=== PATIENT | male | born 1935 | race Caucasian/White ===

== ENCOUNTER 2017-11-08 01:55 | Inpatient (IN) | payer OTHER ==
[2017-11-08 02:27] LABS: Absolute Lymphocytes (CBC) 0.7 K/uL (0.7-4.9); Absolute Monocytes 0.5 K/uL (0.1-1.3); Absolute Neutrophil 7.3 K/uL (1.8-8.0); Basophils % 0.2 % (0-1.3); Eosinophils % 0.1 % (0-4.4); Hematocrit 40.2 % (39.6-49.0); Lymphocytes % 8.1 % (15.3-44.8); MCH 33.2 pg (27.0-35.0); MCV 93.6 fL (80-100); Monocytes % 6.2 % (3.3-12.3)
[2017-11-08] MEDS ORDERED: ONDANSETRON 4 MG/2 ML VIAL ONE (02:30)
[2017-11-08 02:45] LABS: Protime INR 0.92
[2017-11-08 02:48] LABS: ALT/SGPT 17 U/L (12-78); AST/SGOT 41 U/L (15-37); Albumin 3.7 g/dL (3.4-5.0); Alkaline Phosphatase 95 U/L (45-117); BUN Blood Urea Nitrogen 9 mg/dL (7-18); Bicarbonate 28 mmol/L (21-32); Bilirubin Direct 0.3 mg/dL (0-0.2); Glucose Level 126 mg/dL (74-106); Lipase 49 U/L (73-393); Potassium 3.2 mmol/L (3.5-5.1); Protein, Total 6.8 g/dL (6.4-8.2); Sodium Level 132 mmol/L (136-145)
[2017-11-08] MEDS ORDERED: PROMETHAZINE 25 MG/ML VIAL ONE (03:10)
[2017-11-08 04:09] LABS: Blood Morphology Comment NOT SEEN (NOT SEEN); Platelet Estimate ADEQ; Urine White Blood Cell Casts OK
--- NOTE | 2017-11-08 05:13 | EDPHYS ---
Physician Documentation [facility] Name: Chan Juan Age: 82 yrs Sex: Male : 1935 Arrival Date: 11/08/2017 Time: 01:57 Bed 18 Private MD: ED Physician Austin Leong HPI: 11/08 05:06 This 82 yrs old Male presents to ER via EMS with complaints of Rectal rn Bleeding. 05:06 The patient presents to the emergency department with bleeding from the rectum/anus. rn Onset: The symptoms/episode began/occurred yesterday. Context: the patient has no known special context relating to the rectal area complaint(s). Modifying factors: The symptoms are alleviated by nothing, The symptoms are aggravated by bowel movement. Associate signs and symptoms: Pertinent positives: abdominal pain in the left lower quadrant, lower GI bleeding, bright red. The patient has not experienced similar symptoms in the past. The patient has not recently seen a physician. Reports left sided abd pain, began yesterday, constant, assoc with nausea/vomiting, and small amount of bright red rectal bleeding.. Historical: - Allergies: 02:04 No Known Allergies; tl2 - Home Meds: 02:04 dilaudid [Active]; bisoprolol fumarate oral oral [Active]; tl2 - PMHx: 02:00 Hypertension; tl2 02:04 chronic back pain; tl2 - PSHx: 02:05 Cholecystectomy; tl2 - Immunization history:: Adult Immunizations up to date. - Social history:: Smoking status: Patient uses tobacco products, smokes one-half pack cigarettes per day. - Ebola Screening: : No symptoms or risks identified at this time. - Family history:: not pertinent. - Hospitalizations: : No recent hospitalization is reported. ROS: 05:06 Constitutional: Negative for fever, chills, and weight loss, Eyes: Negative for injury, rn pain, redness, and discharge, Neck: Negative for injury, pain, and swelling, Cardiovascular: Negative for chest pain, palpitations, and edema, Respiratory: Negative for shortness of breath, cough, wheezing, and pleuritic chest pain, Abdomen/GI: Negative for diarrhea, and constipation, + rectal bleeding MS/Extremity: Negative for injury and deformity, Skin: Negative for injury, rash, and discoloration, Neuro: Negative for headache, weakness, numbness, tingling, and seizure. Exam: 05:06 Constitutional: This is a well developed, well nourished patient who is awake, alert, rn actively throwing up in emesis bag Head/Face: Normocephalic, atraumatic. Eyes: Pupils equal round and reactive to light, extra-ocular motions intact. Lids and lashes normal. Conjunctiva and sclera are non-icteric and not injected. Cornea within normal limits. Periorbital areas with no swelling, redness, or edema. Cardiovascular: Regular rate and rhythm with a normal S1 and S2. No gallops, murmurs, or rubs. Normal PMI, no JVD. No pulse deficits. Respiratory: Lungs have equal breath sounds bilaterally, clear to auscultation and percussion. No rales, rhonchi or wheezes noted. No increased work of breathing, no retractions or nasal flaring. Abdomen/GI: soft, + moderate tenderness left abdomen with guarding Skin: Warm, dry with normal turgor. Normal color with no rashes, no lesions, and no evidence of cellulitis. MS/ Extremity: Pulses equal, no cyanosis. Neurovascular intact. Full, normal range of motion. Equal circumference. Neuro: awake, alert, follows all commands Vital Signs: 02:00 BP 180 / 86; Pulse 88; Resp 18; Temp 98.8(O); Pulse Ox 100% on R/A; Weight 74.84 kg; tl2 Height 5 ft. 9 in. (175.26 cm); Pain 10/10; 03:45 BP 177 / 75; Pulse 75; Resp 19 S; Pulse Ox 98% on R/A; cc3 04:00 BP 178 / 70; Pulse 77; Resp 20 S; Pulse Ox 98% on R/A; cc3 05:30 BP 171 / 73; Pulse 78; Resp 20 S; Pulse Ox 98% on R/A; cc3 02:00 Body Mass Index 24.37 (74.84 kg, 175.26 cm) tl2 MDM: 02:06 Patient medically screened. rn 05:11 Differential diagnosis: colitis. Data reviewed: vital signs, nurses notes, lab test rn result(s), radiologic studies, CT scan, and as a result, I will admit patient. Counseling: I had a detailed discussion with the patient and/or guardian regarding: the historical points, exam findings, and any diagnostic results supporting the discharge/admit diagnosis, lab results, radiology results, the need for further work-up and treatment in the hospital. Admission orders: after a detailed discussion of the patient's condition and case, the admit orders are written by me. ED course: Pt with moderate to severe colitis, will admit to Dr. Robledo for IV abx, does not need blood transfusion.. 05:26 ED course: Message left for Dr. Robledo at 0525 after called and no answer. . rn 11/08 02:07 Order name: Basic Metabolic Panel; Complete Time: 03:46 rn 11/08 02:07 Order name: CBC with Diff; Complete Time: 05:01 rn 11/08 02:07 Order name: Creatinine for Radiology; Complete Time: 03:46 rn 11/08 02:07 Order name: Hepatic Function; Complete Time: 03:46 11/08 02:07 Order name: Lipase; Complete Time: 03:46 rn 11/08 02:07 Order name: Type And Screen; Complete Time: 03:46 rn 11/08 02:07 Order name: CT Abd/Pelvis - W/Contrast rn 11/08 02:07 Order name: PT-INR; Complete Time: 03:46 11/08 02:07 Order name: Ptt, Activated; Complete Time: 03:46 rn 11/08 04:09 Order name: CBC Smear Scan; Complete Time: 05:01 EDNE 11/08 05:51 Order name: ABO/RH no charge EDNE 11/08 02:07 Order name: IV Saline Lock; Complete Time: 02:39 rn 11/08 02:07 Order name: Labs collected and sent; Complete Time: 02:39 rn Administered Medications: 02:30 Drug: Zofran 4 mg Route: IVP; Site: right antecubital; cc3 03:00 Follow up: Response: No adverse reaction; Vomiting unchanged cc3 03:06 Drug: Promethazine 12.5 mg Route: IVP; Site: right antecubital; cc3 03:30 Follow up: Response: No adverse reaction; Vomiting decreased cc3 05:20 Drug: Rocephin - (cefTRIAXone) 1 grams Route: IVPB; Infused Over: 30 mins; Site: right cc3 antecubital; 05:35 Follow up: Response: No adverse reaction; IV Status: Completed infusion; IV Intake: [id number] 05:25 Drug: Flagyl 500 mg Volume: 100 ml; Route: IVPB; Rate: 200 ml/hr; Infused Over: 30 cc3 mins; Site: right antecubital; 05:45 Follow up: Response: No adverse reaction; IV Status: Infusion continued upon admission cc3 Disposition: 11/08/17 05:13 Hospitalization ordered by Nathan Robledo for Inpatient Admission. Preliminary diagnosis is Colitis. - Bed requested for Telemetry/MedSurg (Inpatient). - Status is Inpatient Admission. cc3 - Condition is Stable. - Problem is new. - Symptoms have improved. UTI on Admission? No Signatures: Dispatcher [employer] EDDanielle Shukla RN RN kl Nieto, Roman, MD MD rn Knox, Taylor, RN RN 2 Nela Lama cc3 Corrections: (The following items were deleted from the chart) 02:05 02:00 Allergies: No Known Allergies; tl2 tl2 02:05 02:00 Home Meds: Dilantin Oral; tl2 tl2 05:23 05:13 Hospitalization Ordered by Nathan Robledo MD for Inpatient Admission. Preliminary diagnosis is Colitis. Bed requested for Telemetry/MedSurg (Inpatient). Status is Inpatient Admission. Condition is Stable. Problem is new. Symptoms have improved. UTI on Admission? No. rn 06:00 05:23 11/08/2017 05:13 Hospitalization Ordered by Nathan Robledo MD for Inpatient cc3 Admission. Preliminary diagnosis is Colitis. Bed requested for Telemetry/MedSurg (Inpatient). Status is Inpatient Admission. Condition is Stable. Problem is new. Symptoms have improved. UTI on Admission? No. kl
--- NOTE | 2017-11-08 05:13 | ER ---
Nurse's Notes [facility] Name: Chan Juan Age: 82 yrs Sex: Male : 1935 Arrival Date: 11/08/2017 Time: 01:57 Bed 18 Private MD: Diagnosis: Colitis Presentation: 11/08 01:58 Presenting complaint: EMS states: Pt had been constipated and stated he started passing tl2 blood with his bowel movements. Patient states he is passing bright red blood. Reports LLQ pain and nausea. Transition of care: patient was not received from another setting of care. Onset of symptoms was November 07, 2017 at 17:00. Risk Assessment: Do you want to hurt yourself or someone else? Patient reports no desire to harm self or others. Initial Sepsis Screen: Does the patient meet any 2 criteria? No. Patient's initial sepsis screen is negative. Does the patient have a suspected source of infection? No. Patient's initial sepsis screen is negative. Care prior to arrival: None. 01:58 Method Of Arrival: EMS: [facility] tl2 01:58 Acuity: LUANA 3 tl2 Triage Assessment: 02:00 General: Appears in no apparent distress. uncomfortable, Behavior is calm, cooperative, tl2 appropriate for age. Pain: Complains of pain in left lower quadrant. Neuro: Level of Consciousness is awake, alert, obeys commands, Oriented to person, place, time, situation. Respiratory: Airway is patent Respiratory effort is even, unlabored, Respiratory pattern is regular, symmetrical. GI: Abdomen is tender to palpation in left lower quadrant Reports rectal bleeding, nausea, vomiting. : No signs and/or symptoms were reported regarding the genitourinary system. Derm: Skin is pink, warm \T\ dry. Historical: - Allergies: 02:04 No Known Allergies; tl2 - Home Meds: 02:04 dilaudid [Active]; bisoprolol fumarate oral oral [Active]; tl2 - PMHx: 02:00 Hypertension; tl2 02:04 chronic back pain; tl2 - PSHx: 02:05 Cholecystectomy; tl2 - Immunization history:: Adult Immunizations up to date. - Social history:: Smoking status: Patient uses tobacco products, smokes one-half pack cigarettes per day. - Ebola Screening: : No symptoms or risks identified at this time. - Family history:: not pertinent. - Hospitalizations: : No recent hospitalization is reported. Screenin:01 Abuse screen: Denies threats or abuse. Nutritional screening: No deficits noted. tl2 Tuberculosis screening: No symptoms or risk factors identified. Fall Risk Gait- Weak (10 pts.). Assessment: 02:00 General: see triage note. cc3 03:30 Reassessment: Patient appears in no apparent distress at this time. Patient and/or cc3 family updated on plan of care and expected duration. Pain level reassessed. Patient is alert, oriented x 3, equal unlabored respirations, skin warm/dry/pink. 04:10 Reassessment: Patient appears in no apparent distress at this time. Patient and/or cc3 family updated on plan of care and expected duration. Pain level reassessed. Patient is alert, oriented x 3, equal unlabored respirations, skin warm/dry/pink. Patient taken to CT scan department for CT scan abdomen/pelvis procedure. 04:35 Reassessment: Patient appears in no apparent distress at this time. Patient and/or cc3 family updated on plan of care and expected duration. Pain level reassessed. Patient is alert, oriented x 3, equal unlabored respirations, skin warm/dry/pink. Patient came back from CT scan department; CT scan abdomen/pelvis done, waiting for result. 05:13 Reassessment: Patient appears in no apparent distress at this time. Patient and/or cc3 family updated on plan of care and expected duration. Pain level reassessed. Patient is alert, oriented x 3, equal unlabored respirations, skin warm/dry/pink. Patient is ordered for admission as a case of colitis. 05:37 Reassessment: Room assigned to [facility], called extension [phone] and the one who answered said cc3 that the nurse who will receive the patient will call me back. 05:40 Reassessment: Patient appears in no apparent distress at this time. Patient and/or cc3 family updated on plan of care and expected duration. Pain level reassessed. Patient is alert, oriented x 3, equal unlabored respirations, skin warm/dry/pink. Report handed over to auto hauler Hermelinda Mccracken for continuity of care. 05:50 Reassessment: Patient left ER vitally stable by stretcher assisted by the occupational therapy technician. cc3 Vital Signs: 02:00 BP 180 / 86; Pulse 88; Resp 18; Temp 98.8(O); Pulse Ox 100% on R/A; Weight 74.84 kg; tl2 Height 5 ft. 9 in. (175.26 cm); Pain 10/10; 03:45 BP 177 / 75; Pulse 75; Resp 19 S; Pulse Ox 98% on R/A; cc3 04:00 BP 178 / 70; Pulse 77; Resp 20 S; Pulse Ox 98% on R/A; cc3 05:30 BP 171 / 73; Pulse 78; Resp 20 S; Pulse Ox 98% on R/A; cc3 02:00 Body Mass Index 24.37 (74.84 kg, 175.26 cm) tl2 ED Course: 01:57 Patient arrived in ED. tl2 01:59 Triage completed. tl2 02:00 Arm band placed on right wrist. tl2 02:01 Patient has correct armband on for positive identification. Bed in low position. Call tl2 light in reach. Side rails up X2. 02:06 Austin Leong MD is Attending Physician. rn 02:30 Inserted saline lock: 20 gauge in right antecubital area, using aseptic technique. cc3 Blood collected. 04:25 CT Abd/Pelvis - W/Contrast In Process Unspecified. EDMS 05:13 Nathan Robledo MD is Hospitalizing Provider. rn 05:16 Anthony Maier RN is Primary Nurse. bp 05:50 No provider procedures requiring assistance completed. Patient admitted, IV remains in cc3 place. Administered Medications: 02:30 Drug: Zofran 4 mg Route: IVP; Site: right antecubital; cc3 03:00 Follow up: Response: No adverse reaction; Vomiting unchanged cc3 03:06 Drug: Promethazine 12.5 mg Route: IVP; Site: right antecubital; cc3 03:30 Follow up: Response: No adverse reaction; Vomiting decreased cc3 05:20 Drug: Rocephin - (cefTRIAXone) 1 grams Route: IVPB; Infused Over: 30 mins; Site: right cc3 antecubital; 05:35 Follow up: Response: No adverse reaction; IV Status: Completed infusion; IV Intake: [id number] 05:25 Drug: Flagyl 500 mg Volume: 100 ml; Route: IVPB; Rate: 200 ml/hr; Infused Over: 30 cc3 mins; Site: right antecubital; 05:45 Follow up: Response: No adverse reaction; IV Status: Infusion continued upon admission cc3 Intake: 05:35 IV: 50ml; Total: 50ml. cc3 Outcome: 05:13 Decision to Hospitalize by Provider. rn 05:50 Admitted to Tele accompanied by tech, via stretcher, room 403, with chart, Report cc3 called to KATELIN Mccracken 05:50 Condition: stable 05:50 Instructed on the need for admit. 06:00 Patient left the ED. cc3 Signatures: Dispatcher [employer] EDMS Austin Leong MD MD rn Knox, Taylor, RN RN tl2 Anthony Maier RN RN Nela Cardona cc3 Corrections: (The following items were deleted from the chart) 02:05 02:00 Allergies: No Known Allergies; tl2 tl2 02:05 02:00 Home Meds: Dilantin Oral; tl2 tl2 05:40 05:13 Reassessment: Patient appears in no apparent distress at this time. Patient cc3 and/or family updated on plan of care and expected duration. Pain level reassessed. Patient is alert, oriented x 3, equal unlabored respirations, skin warm/dry/pink. Patient is ordered for admission as a case of colitis. Room assigned to 403, called extension [phone] and the one who answered said that the nurse who will receive the patient will call me back. cc3
[2017-11-08] MEDS ORDERED: CEFTRIAXONE 1000 MG/VIAL ONE (05:26)
[2017-11-08] MEDS ORDERED: METRONIDAZOLE 500mg IVPB 500 MG/100 ML BAG IV ONE (05:27)
[2017-11-08] MEDS ORDERED: NA CHLORIDE 0.9% 50 ML IV ONE (05:27)
[2017-11-08] MEDS ORDERED: ONDANSETRON 4 MG/2 ML VIAL IV PRN (06:19)
[2017-11-08] MEDS ORDERED: MORPHINE 4 MG/ML SYR IV PRN (06:19)
[2017-11-08] MEDS: D5 0.45 NS 1,000 ML IV SCH ×3 (06:36→22:21)
[2017-11-08] MEDS ORDERED: HYDROCODONE/APAP 7.5/325 MG TAB PO PRN (09:35)
--- NOTE | 2017-11-08 11:34 | RAD REPORT ---
EXAM DESCRIPTION: CT - Abdomen Pelvis W Contrast - 11/08/2017 7:12 am CLINICAL HISTORY: Abdominal pain, rectal bleeding. A preliminary report was provided at the time of the study and reviewed prior to final report. The final report was delayed due to PACs and/or Fluency technical problems that existed at the time of the study or during expected/usual dictation time period. COMPARISON: CT study September 2008 TECHNIQUE: Biphasic, helical CT imaging of the abdomen and pelvis was performed following 100 ml non -ionic IV contrast. Oral contrast was given. All CT scans are performed using dose optimization technique as appropriate and may include automated exposure control or mA/KV adjustment according to patient size. FINDINGS: No mass or consolidation. Minimal interstitial lung disease is evident. Patient has substa ntial bilateral gynecomastia that is only partially imaged. The prior study did not image this region to allow comparison. The liver, spleen, and pancreas show no suspicious findings. Cholecystectomy clips are present. No bi liary tree dilatation. Symmetric renal function is seen with no hydronephrosis or suspicious renal mass. No pyelonephritis o r acute renal parenchymal process. [place] of the urinary bladder are mildly prominent probably still n ormal range. Very small prostate gland is present. Patient may be status post prostatectomy. No urina ry bladder wall mass. No gastric dilatation or acute stomach process. Stomach is small and may be partially resected. No ac ely shoshone small bowel finding. Oral contrast has reached the hepatic flexure. There is wall thickening and edema at the sigmoid. Hepatic flexure and right side transverse colon are relatively spared. There is circumferential wall thickening and edema in the left side of the colon that becomes more pronounced in the distal rectum and sigmoid. There is congestion and edema in the adjacent fat. A focal discret e mass is not identifiable. No free air or pneumatosis. A small amount of free intraperitoneal fluid is present. No hernia, mass or bulky lymphadenopathy. No omental thickening. No adrenal abnormality. Disc and bony degenerative changes are present. No pathologic bone process. Very dense arterial tree calcifications are present. IMPRESSION: Advanced colitis findings of the sigmoid colon and rectum. Significant but less prominen t colitis findings of the left-side transverse colon, descending colon and cecum. Small quantity of free fluid. No free air or surgically emergent finding. Infectious/ inflammatory etiology is favored. Ischemic etiology is less likely. Patient has significant bilateral gynecomastia findings that are only partially imaged on this study. Correlation can be made with physical exam findings and follow-up as warranted.
[2017-11-08] MEDS ORDERED: cloNIDine HCl 0.1 MG TAB PO ONE (12:02)
[2017-11-08] MEDS ORDERED: TEMAZEPAM 15 MG CAP PO PRN (12:40)
--- NOTE | 2017-11-08 12:47 | P.HP ---
Certification for Inpatient Patient admitted to: Observation With expected LOS: <2 Midnights Patient will require the following post-hospital care: None Practitioner: I am a practitioner with admitting privileges, knowledge of patient current condition, hospital course, and medical plan of care. Services: Services provided to patient in accordance with Admission requirements found in Title 42 Section 412.3 of the Code of Federal Regulations Patient History Date of Service: 11/08/17 Primary Care Provider: Meena Reason for admission: Sigmoid colitis History of Present Illness: Patient is an office patient of [employer]. He has a history of htn and abnormal kidney function. Also chronic pain which is treated by Dr. Pedraza. He had constipation for the past 2 days and abdmonial pain. He came to the ER. Was found to have some blood in the stool and colitis on CT. No signs of obstruction. The patient is not a very good historian. He has abdominal pain and constipation. No vomiting. States he takes Dilaudid 4mg [id number] per Dr Pedraza for his chronic pain Allergies No Known Allergies Allergy (Unverified 11/08/17 05:31) Home Medications: Bisoprolol Fumarate [Zebeta*] 11/08/17 Hydromorphone [Dilaudid*] 1 tab PO TIDP PRN 11/08/17 - Past Medical/Surgical History Has patient received pneumonia vaccine in the past: No Diabetic: No -: CHronic Back pain -: HTN -: Cholecystectomy - Social History Smoking Status: Never smoker Alcohol use: Yes CD- Drugs: No Caffeine use: No Place of Residence: Home Review of Systems 10-point ROS is otherwise unremarkable General: Weakness Gastrointestinal: Abdominal Pain, Constipation Physical Examination - Vital Signs Temperature: 98.6 F Blood Pressure: 167/76 Pulse: 77 Respirations: 16 Pulse Ox (%): 98 - Physical Exam General: Alert, In no apparent distress HEENT: Atraumatic, PERRLA, Mucous membr. moist/pink, EOMI, Sclerae nonicteric Neck: Supple, 2+ carotid pulse no bruit, No LAD, Without JVD or thyroid abnormality Respiratory: Clear to auscultation bilaterally, Normal air movement Cardiovascular: Regular rate/rhythm, Normal S1 S2 Gastrointestinal: Normal bowel sounds, W/out hepatosplenomegaly, Tenderness Musculoskeletal: No tenderness Integumentary: No rashes Neurological: Normal gait, Normal speech, Normal strength at 5/5 x4 extr, Normal tone, Normal affect Lymphatics: No axilla or inguinal lymphadenopathy - Studies Laboratory Data (last 24 hrs) 11/08/17 02:05: PT 10.8, INR 0.92, APTT 30.6 11/08/17 02:05: Creatinine 0.70 11/08/17 02:05: WBC 8.6, Hgb 14.3, Hct 40.2, Plt Count 178 11/08/17 02:05: Sodium 132 L, Potassium 3.2 L, BUN 9, Creatinine 0.70, Glucose 126 H, Total Bilirubin 1.0, AST 41 H, ALT 17, Alkaline Phosphatase 95, Lipase 49 L Assessment and Plan - Problems (Diagnosis) (1) Colitis Current Visit: Yes Status: Acute Plan: Will continue bowel rest and fluids. He has no obstruction. he has been on a steady dosage of dilaudid for years. So most likely not opiod constipation. Will try a clear liquid diet and advance as tolerated. (2) HTN (hypertension) Current Visit: Yes Status: Acute Plan: He is on amlodipine, cozaar and ziac. Will restart the amlodipine and cozaar. Will see if he is better controlled and then consider the beta babak Qualifiers: Hypertension type: essential hypertension Qualified Code(s): I10 - Essential (primary) hypertension (3) Chronic pain syndrome Current Visit: Yes Status: Acute Plan: Have called Dr. Pedraza and verified his dosage. is on 4mg Q8hrs not Q4hrs. Will start him on that and stop the other pain meds. Discharge Plan: Home Plan to discharge in: 48 Hours - Advance Directives Does patient have a Living Will: Yes Does patient have a Durable POA for Healthcare: No - Code Status/Comfort Care Code Status Assessed: No Code Status: Full Code Physician Review: Patient Assessed, Agree with Above Assessment and Plan Critical Care: No Time Spent Managing Pts Care (In Minutes): 55
[2017-11-08] MEDS: METRONIDAZOLE 500mg IVPB 500 MG/100 ML BAG IV SCH ×2 (14:18→17:00)
[2017-11-08] MEDS: HYDROMORPHONE ORAL 4 MG TAB PO PRN ×2 (14:19→22:15)
[2017-11-08 16:26] LABS: Hematocrit 39.1 % (39.6-49.0)
[2017-11-08] MEDS: CEFTRIAXONE/SWI 1gm 1 GM/10 ML SYR IV SCH (17:31)
[2017-11-08] MEDS: AMLODIPINE 10 MG TAB PO SCH (17:32)
[2017-11-08] MEDS: LOSARTAN POTASSIUM 50 MG TABLET PO SCH (17:33)
[2017-11-08] MEDS ORDERED: CEFTRIAXONE 1 GM/NS 50 ML 1 GM/50 ML BAG IV SCH (18:00)
[2017-11-09] MEDS: METRONIDAZOLE 500mg IVPB 500 MG/100 ML BAG IV SCH ×3 (00:44→16:03)
[2017-11-09 03:38] LABS: Absolute Lymphocytes (CBC) 1.3 K/uL (0.7-4.9); Absolute Monocytes 0.7 K/uL (0.1-1.3); Absolute Neutrophil 6.7 K/uL (1.8-8.0); Basophils % 0.3 % (0-1.3); Eosinophils % 0.1 % (0-4.4); Hematocrit 35.3 % (39.6-49.0); Lymphocytes % 15.3 % (15.3-44.8); MCH 33.3 pg (27.0-35.0); MCV 94.3 fL (80-100); MPV 7.4 fL (7.6-11.3); Monocytes % 7.5 % (3.3-12.3); RBC Red Blood Cell Count 3.74 M/uL (4.33-5.43)
[2017-11-09 04:18] LABS: ALT/SGPT 10 U/L (12-78); AST/SGOT 20 U/L (15-37); Albumin 2.6 g/dL (3.4-5.0); Alkaline Phosphatase 68 U/L (45-117); BUN Blood Urea Nitrogen 4 mg/dL (7-18); Bicarbonate 27 mmol/L (21-32); Bilirubin Direct 0.4 mg/dL (0-0.2); Glucose Level 140 mg/dL (74-106); Lipase 38 U/L (73-393); Protein, Total 5.6 g/dL (6.4-8.2); Sodium Level 134 mmol/L (136-145)
[2017-11-09 04:21] LABS: Potassium 2.9 mmol/L (3.5-5.1)
[2017-11-09] MEDS: HYDROMORPHONE ORAL 4 MG TAB PO PRN ×3 (06:49→21:35)
[2017-11-09] MEDS: POTASSIUM CL SA 10 MEQ TAB PO SCH ×2 (07:40→16:04)
[2017-11-09] MEDS: D5 0.45 NS 1,000 ML IV SCH ×3 (07:42→21:25)
--- NOTE | 2017-11-09 09:04 | P.PN ---
Subjective Date of Service: 11/09/17 Primary Care Provider: Meena Chief Complaint: Sigmoid colitis Subjective: New changes (patient had 3 bowel movement. His first two had blood. Last BM was not bloody) Review of Systems 10-point ROS is otherwise unremarkable Physical Examination - Vital Signs Temperature: 99.8 F Blood Pressure: 142/60 Pulse: 84 Respirations: 18 Pulse Ox (%): 95 - Physical Exam General: Alert, In no apparent distress HEENT: Atraumatic, PERRLA, EOMI Neck: Supple, JVD not distended Respiratory: Clear to auscultation bilaterally, Normal air movement Cardiovascular: Regular rate/rhythm, Normal S1 S2 Gastrointestinal: Normal bowel sounds, No tenderness Musculoskeletal: No tenderness Integumentary: No rashes Neurological: Normal speech, Normal tone, Normal affect Lymphatics: No axilla or inguinal lymphadenopathy Assessment & Plan - Problems (Diagnosis) (1) Colitis Current Visit: Yes Status: Acute Plan: Will continue bowel rest and fluids. He has no obstruction. he has been on a steady dosage of dilaudid for years. So most likely not opiod constipation. Will try a clear liquid diet and advance as tolerated. (2) HTN (hypertension) Current Visit: Yes Status: Acute Plan: He is on amlodipine, cozaar and ziac. Will restart the amlodipine and cozaar. Will see if he is better controlled and then consider the beta babak Qualifiers: Hypertension type: essential hypertension Qualified Code(s): I10 - Essential (primary) hypertension (3) Chronic pain syndrome Current Visit: Yes Status: Acute Plan: Have called Dr. Pedraza and verified his dosage. is on 4mg Q8hrs not Q4hrs. Will start him on that and stop the other pain meds. Discharge Plan: Home Plan to discharge in: 48 Hours - Code Status/Comfort Care Code Status Assessed: No Code Status: Full Code Physician Review: Patient Assessed, Agree with Above Assessment and Plan Critical Care: No Time Spent Managing Pts Care (In Minutes): 25
[2017-11-09 10:05] LABS: Hematocrit 34.4 % (39.6-49.0)
[2017-11-09] MEDS: CEFTRIAXONE/SWI 1gm 1 GM/10 ML SYR IV SCH ×2 (10:51→21:25)
[2017-11-09] MEDS: LOSARTAN POTASSIUM 50 MG TABLET PO SCH (10:51)
[2017-11-09] MEDS: AMLODIPINE 10 MG TAB PO SCH (10:52)
--- OUTSIDE RECORDS SUMMARY | 2017-11-09 12:07 | XMS REPORT ---
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 Problem Essential (primary) hypertension I10 Active Problem Overflow incontinence of urine N39.490 Active Assessment Essential (primary) hypertension I10 Active Assessment Overflow incontinence of urine N39.490 Active Problem Irritable bowel syndrome with K58.0 Active diarrhea Medications Medication Code Code Instructions Start End Status Dosage System Date Date Tolterodine [facility] 66031662819 1 MG Orally Sep 22, Mar 21, Active 1 tablet Tartrate Twice a day 2017 2018 Temazepam [facility] 79204463096 15 MG Orally Active 1 capsule Once a day at bedtime as needed Neurontin [facility] 99304730782 100 MG Orally Active 1 capsule Three times a day Cozaar [facility] 88230708984 100 MG Orally Active 1 tablet Once a day Aspirin ND 37022963605 81 MG Orally Active 1 tablet Once a day Fish Oil [facility] 41667338389 1000 MG Orally Active 1 capsule Once a day Amlodipine [facility] 15597257714 10 MG Orally Active 1 tablet Besylate Once a day Norvasc [facility] 91150750784 10 Active 1 EACH ONCE A DAY Ziac [facility] 72435810962 5-6.25 MG Orally Active 1 tablet Once a day Calcium [facility] 75136098603 600 MG Orally Active 1 tablet Twice a day with meals Results No Known Results Summary Purpose eClinicalWorks Submission
--- OUTSIDE RECORDS SUMMARY | 2017-11-09 12:07 | XMS REPORT ---
:1935 Author Organization eClinicalWorks Care Team Providers Name Role Phone Nathan Robledo Provider Role Unavailable Allergies, Adverse Reactions, Alerts Substance Reaction Event Type N.K.D.A. 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 Assessment Essential (primary) hypertension I10 Active Assessment Irritable bowel syndrome with K58.0 Active diarrhea Medications Medication Code Code Instructions Start End Status Dosage System Date Date Calcium [facility] 78578465224 600 MG Orally Active 1 tablet Twice a day with meals Cozaar [facility] 76755694332 100 MG Orally Active 1 tablet Once a day Fish Oil [facility] 56168094099 1000 MG Orally Active 1 capsule Once a day Aspirin [facility] 18349748356 81 MG Orally Active 1 tablet Once a day Temazepam [facility] 51162952162 15 MG Orally Active 1 capsule Once a day at bedtime as needed Neurontin [facility] 35471980534 100 MG Orally Active 1 capsule Three times a day Amlodipine [facility] 28598485794 10 MG Orally Active 1 tablet Besylate Once a day Ziac [facility] 43374130154 5-6.25 MG Orally Active 1 tablet Once a day Results No Known Results Summary Purpose eClinicalWorks Submission
--- NOTE | 2017-11-09 13:18 | CON ---
Date of Consultation: 11/09/2017 Brief History Of Present Illness: The patient is an 82-year-old male with a history of chronic pain, who has been seen by Dr. Contreras and is on chronic narcotic use including Dilaudid for chronic back pain, who presented to the hospital with a roughly 1 week worth of constipation. He states that on Thursday or Thursday, he had a large firm very difficult to pass bowel movement at which, some bright r ed blood was evident on this. He has not had this before with respect to the bleeding. He is unsure of the amount of blood and has not had episodes prior to this or following this and since his admiss ion in the hospital, he has had persistent diarrhea. He had some abdominal pain associated with his constipation leading up to last week. He cannot recall his bowel function timing coming into the t week, as well he is somewhat of a poor historian. Past Medical History: Significant for ulcers, chronic pain, chronic back pain, I should say hyperten sarah. Past Surgical History: He has had a cholecystectomy, partial gastrectomy uncertain of the specific t ype, but it sounds like either a Billroth I or Billroth II. Allergies: NO KNOWN DRUG ALLERGIES. Medications: At home include Zebeta and Dilaudid. Social History: Denies smoking. He uses alcohol recreationally. Denies recreational drug use, but he has a chronic pain. The patient do take Dilaudid as above. Family History: Noncontributory. Review of Systems: 10-point review of systems other than HPI, denies. Physical Examination: Vital Signs: At the time of examination his BMI is 18.9, blood pressure 142/60, heart rate is 84, re spiratory rate 18, temperature 99.8. General: He is awake, alert, oriented. Psychiatric: He is appropriate. Conversive. HEENT: Normocephalic. His sclerae are anicteric. His mucous membranes are moist. His oropharynx i s clear. Neck: Supple. No JVD. Chest: Normal expansion and excursion. Cardiovascular: Regular rate and rhythm. Pulmonary: Clear to auscultation bilaterally. Abdomen: Soft with mild global tenderness to palpation. He is more tender in the distribution of th e colon in an inverted U type orientation and the left lower quadrant is slightly more tender than th e remaining abdominal examination. However, there are no peritoneal signs. No rebound. No guarding . No focal peritonitis. SKIN: His skin is warm and dry. Laboratory Data: Reveals a white blood count 8.7, hemoglobin is 12.4, hematocrit 35.9, platelet coun t is 117. His neutrophils are 76%. Sodium 134, potassium 2.9, chloride 101, carbon dioxide 27, BUN 4, creatinine 0.5, glucose 140, calcium 7.7, total bilirubin 1.0, AST 20, ALT 10, alkaline phosphatas e is 68. His lipase was 38. He had a CT scan performed of the abdomen and pelvis on 11/08, which wa s officially read as advanced colitis findings in the sigmoid colon and rectum significant for less p rominent colitis findings of the left-sided transverse colon, descending colon and cecum, small quant ity of free fluid, no free air or surgically emergent finding. Infectious/inflammatory etiology is f avored, ischemic etiology is less likely. The patient has significant bilateral gynecomastia but onl y partially imaged. Assessment And Plan: This is an 82-year-old male who comes in with signs and symptoms of colitis lik pranay due to chronic constipation secondary to narcotic use. 1.IV fluid hydration. 2.Start clear liquid diet as he currently has diarrhea. I recommend Metamucil for assistance of reg ulatory function of bulk forming of the stool. 3.Serial abdominal exams. 4.Continue medical management and electrolyte replacement. 5.I have explained that the patient should be on a stool softening regimen with Metamucil as an outp atient and described this in detail with the patient. 6.With respect to the GI bleed, the patient states he has had a colonoscopy 2-3 years ago, which had no significant findings. However, I have recommended that he follow up with his GI doctor who perfo rmed a colonoscopy to obtain these records and I will request records regarding this as well, but I d o not find that the patient has an acute gastrointestinal bleed of clinical significance at this time . However, if the records are unable to be obtained, I do recommend bowel prep and colonoscopy as an outpatient. Thank you for this interesting consult. JORGE A/MYRNA Voice ID: [id number] Report ID: [id number]
[2017-11-09 21:12] LABS: Hematocrit 33.1 % (39.6-49.0)
[2017-11-09] MEDS: PSYLLIUM 1 PKT PO SCH (21:25)
[2017-11-10] MEDS: METRONIDAZOLE 500mg IVPB 500 MG/100 ML BAG IV SCH ×2 (01:35→09:32)
[2017-11-10 04:16] LABS: Hematocrit 31.8 % (39.6-49.0)
[2017-11-10] MEDS: HYDROMORPHONE ORAL 4 MG TAB PO PRN (05:23)
[2017-11-10] MEDS: D5 0.45 NS 1,000 ML IV SCH ×2 (06:19→09:43)
--- NOTE | 2017-11-10 08:31 | P.PN ---
Subjective Date of Service: 11/10/17 Primary Care Provider: Meena Chief Complaint: Sigmoid colitis Subjective: Improving (tolerating diet, normal bowel function, no blood in stool , pain resolved) Physical Examination - Vital Signs Temperature: 98.3 F Blood Pressure: 150/65 Pulse: 78 Respirations: 20 Pulse Ox (%): 95 - Physical Exam General: Alert, In no apparent distress, Cooperative HEENT: Mucous membr. moist/pink Respiratory: Clear to auscultation bilaterally, Normal air movement Gastrointestinal: Soft and benign, No ascites, No tenderness, No masses, No rebound, No guarding Assessment And Plan - Current Problems (Diagnosis) (1) Colitis Onset Date: 11/09/17 Current Visit: Yes Status: Acute Plan: - follow up in 1 week to discuss colonoscopy - sitz baths - hemorrhoid hygene - metamucil as discussed Physician Review: Patient Assessed, Agree with Above Assessment and Plan
[2017-11-10] MEDS ORDERED: MAGNESIUM OXIDE 400 MG TAB PO SCH (09:00)
[2017-11-10] MEDS: LOSARTAN POTASSIUM 50 MG TABLET PO SCH (09:33)
[2017-11-10] MEDS: CEFTRIAXONE/SWI 1gm 1 GM/10 ML SYR IV SCH (09:33)
[2017-11-10] MEDS: PSYLLIUM 1 PKT PO SCH (09:34)
[2017-11-10] MEDS: AMLODIPINE 10 MG TAB PO SCH (09:34)
--- NOTE | 2017-11-10 10:15 | P.DS ---
Admission Date: 11/08/17 Discharge Date: 11/10/17 Primary Care Provider: Meena Disposition: ROUTINE DISCHARGE Discharge Condition: GOOD Reason for Admission: Sigmoid colitis - Problems (1) Colitis Onset Date: 11/09/17 Current Visit: Yes Status: Acute (2) HTN (hypertension) Onset Date: 11/09/17 Current Visit: Yes Status: Acute Qualifiers: Hypertension type: essential hypertension Qualified Code(s): I10 - Essential (primary) hypertension (3) Chronic pain syndrome Onset Date: 11/09/17 Current Visit: Yes Status: Acute Brief History of Present Illness: Patient is an office patient of [employer]. He has a history of htn and abnormal kidney function. Also chronic pain which is treated by Dr. Pedraza. He had constipation for the past 2 days and abdmonial pain. He came to the ER. Was found to have some blood in the stool and colitis on CT. No signs of obstruction. The patient is not a very good historian. He has abdominal pain and constipation. No vomiting. States he takes Dilaudid 4mg [id number] per Dr Pedraza for his chronic pain Hospital Course: Patient was admitted for colitis. Guiac positive. Was seen in house by Dr. Byrd. He did not have a significant drop in his HB. He is currently stable. No blood in the stools. tolerating PO intake. Will discharge him home and have him follow up with Dr. Byrd as an outpatient. Vital Signs/Physical Exam: Temp Pulse Resp BP Pulse Ox 98.3 F 68 20 166/68 H 95 11/10/17 08:31 11/10/17 09:34 11/10/17 08:31 11/10/17 09:34 11/10/17 08:31 General: Alert, In no apparent distress HEENT: Atraumatic, PERRLA, EOMI Neck: Supple, JVD not distended Respiratory: Clear to auscultation bilaterally, Normal air movement Cardiovascular: Regular rate/rhythm, Normal S1 S2 Gastrointestinal: Normal bowel sounds, No tenderness Musculoskeletal: No tenderness Integumentary: No rashes Neurological: Normal speech, Normal tone, Normal affect Lymphatics: No axilla or inguinal lymphadenopathy Laboratory Data at Discharge: WBC 8.7 K/uL (4.3-10.9) 11/09/17 03:23 Hgb 11.0 g/dL (13.6-17.9) L 11/10/17 03:30 Hct 31.8 % (39.6-49.0) L 11/10/17 03:30 Plt Count 117 K/uL (152-406) L D 11/09/17 03:23 PT 10.8 SECONDS (9.5-12.5) 11/08/17 02:05 INR 0.92 11/08/17 02:05 APTT 30.6 SECONDS (24.3-36.9) 11/08/17 02:05 Sodium 134 mmol/L (136-145) L 11/09/17 03:23 Potassium 2.9 mmol/L (3.5-5.1) L* 11/09/17 03:23 BUN 4 mg/dL (7-18) L 11/09/17 03:23 Creatinine 0.50 mg/dL (0.55-1.3) L 11/09/17 03:23 Glucose 140 mg/dL (74-106) H 11/09/17 03:23 Magnesium 1.5 mg/dL (1.8-2.4) L 11/10/17 03:30 Total Bilirubin 1.0 mg/dL (0.2-1.0) 11/09/17 03:23 AST 20 U/L (15-37) 11/09/17 03:23 ALT 10 U/L (12-78) L 11/09/17 03:23 Alkaline Phosphatase 68 U/L (45-117) 11/09/17 03:23 Lipase 38 U/L (73-393) L 11/09/17 03:23 Home Medications: Bisoprolol Fumarate [Zebeta*] 11/08/17 Hydromorphone [Dilaudid*] 1 tab PO TIDP PRN 11/08/17 Magnesium Oxide [Mag 0X*] 400 mg PO DAILY 10 Days #10 tab 11/10/17 Potassium Chloride 20 meq PO DAILY 10 Days #10 packet 11/10/17 Psyllium [Metamucil (Hydrocil)*] 1 pkt PO BID 30 Days #60 packet 11/10/17 New Medications: Magnesium Oxide [Mag 0X*] 400 mg PO DAILY 10 Days #10 tab Potassium Chloride 20 meq PO DAILY 10 Days #10 packet Psyllium [Metamucil (Hydrocil)*] 1 pkt PO BID 30 Days #60 packet Diet: Regular Activity: Ad tony Followup: Kalin Byrd MD [ACTIVE - CAN ADMIT] - 1-2 Weeks Time spent managing pt's care (in minutes): 40
[2017-11-10 10:29] LABS: Hematocrit 35.7 % (39.6-49.0)
== END 2017-11-10 11:36 | disposition home or self-care (01) | DRG 392 ==
LOC: ER 01:55 → ERHOLD 05:27 → 4TH 05:36
PROVIDERS: ADMIT Internal Medicine; ATTEND Internal Medicine
DX: K52.9 Noninfective gastroenteritis and colitis, unspecified (principal); I10 Essential (primary) hypertension; G89.4 Chronic pain syndrome; N62 Hypertrophy of breast
CPT/HCPCS: 36415; 74177; 80048; 80076; 83690; 83735; 85014; 85018; 85025; 85610; 85730; 86850; 86900; 86901; 87177; 87209; 87493; 96365; 96375; 99285; J0696; J2405; J2550; Q9967

== ENCOUNTER 2019-04-23 14:11 | Emergency (ER) | payer OTHER ==
--- OUTSIDE RECORDS SUMMARY | 2019-04-23 14:14 | XMS REPORT ---
:1935 Author Organization eClinicalWorks Care Team Providers Name Role Phone Tammie Madrigal Provider Role Unavailable Allergies, Adverse Reactions, Alerts Substance Reaction Event Type N.K.D.A. Info Not Available Non Drug Allergy Problems Problem Type Condition Code Onset Dates Condition Status Assessment Senile cataract of left eye, H25.9 Active unspecified age-related cataract type Assessment Pre-op exam Z01.818 Active Assessment Chronic pain syndrome G89.4 Active Assessment Essential (primary) hypertension I10 Active Problem Chronic pain syndrome G89.4 Active Problem Senile cataract of left eye, H25.9 Active unspecified age-related cataract type Problem Pre-op exam Z01.818 Active Problem Irritable bowel syndrome with K58.0 Active diarrhea Problem Essential (primary) hypertension I10 Active Problem Overflow incontinence of urine N39.490 Active Problem 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 Medications Medication Code Code Instructions Start End Status Dosage System Date Date Temazepam ND 39533681446 15 MG Orally Active 1 capsule Once a day at bedtime as needed Bisoprolol-Hydroc ND 62285432589 5-6.25 MG Oral Active 1 tablet hlorothiazide Once a day Calcium ND 40150410290 600 MG Orally Active 1 tablet Twice a day with meals Methocarbamol ND 57508746108 500 MG Oral Active TK 1 T PO BID Hydromorphone HCl ND 24362113914 4 MG Oral Active (Schedule II Drug) TK 1 T PO TID Aspirin ND 90734720325 81 MG Orally Active 1 tablet Once a day Lisinopril ND 16058863631 20 MG Orally Oct 12, Active 1 tablet Once a day 2018 Fish Oil ND 99191566003 1000 MG Orally Active 1 capsule Once a day Neurontin ND 00290720185 100 MG Orally Active 1 capsule Three times a day Results No Known Results Summary Purpose eClinicalWorks Submission
--- OUTSIDE RECORDS SUMMARY | 2019-04-23 14:14 | XMS REPORT | Summary of Care ---
:1935 Author Organization [facility] Address [address] [place] [address] Care Team Providers Name Role Phone Pcp, Patient Does Not Have A Primary Care Provider Encounter Details Date Type Department Care Team Description 04/13/2019 Hospital Encounter [facility] [address] [place] [address] [place] [address] [place] [address] [place], [place] [phone] Allergies No Known Allergiesdocumented as of this encounter (statuses as of 04/14/2019) Medications Medication Sig Dispensed Refills Start Date End Date Status HYDROmorphone 4 mg 0 04/12/2019 Active tablet ketorolac 0.5 % INT 1 GTT IN OS 0 2019 Active ophthalmic solution DAILY. START 1 DAY B SURGERY.USE 3 GTS EACH 5 MIN APART THE MORNING OF SURGERY methocarbamol 500 mg 0 04/12/2019 Active tablet moxifloxacin 0.5 % INT 1 GTT IN OS 0 01/20/2019 Active ophthalmic drops TWICE DAILY. START 1 DAY B SURGERY.USE 3 GTS EACH 5 MIN APART THE MORNING OF SURGERY prednisoLONE acetate 1 SHAKE LQ AND INT 0 01/20/2019 Active % ophthalmic suspension 1 GTT IN OS TWICE drops DAILY. START 1 DAY AFTER SURGERY documented as of this encounter (statuses as of 04/14/2019) Active Problems Not on filedocumented as of this encounter (statuses as of 04/14/2019) Social History Tobacco Use Types Packs/Day Years Used Date Never Smoker Smokeless Tobacco: Never Used Sex Assigned at Date Recorded Not on file Job Start Date Occupation Industry Not on file Not on file Not on file Travel History Travel Start Travel End No recent travel history available. documented as of this encounter Last Filed Vital Signs Not on filedocumented in this encounter Plan of Treatment Name Type Priority Associated Diagnoses Date/Time XR ELBOW >3 VW RIGHT IMAGING Routine Right elbow pain 04/13/2019 4:22 PM TRAVEL RN OR Name Type Priority Associated Diagnoses Order Schedule XR ELBOW >3 VW RIGHT IMAGING Routine Right elbow pain 1 Occurrences starting 04/13/2019 until 04/13/2019 Health Maintenance Due Date Last Done Comments DTaP,Tdap,and Td Vaccines (1 - Tdap) 01/23/1946 Zoster Recombinant Vaccine (SHINGRIX) (1 of 2) 1987 Medicare Wellness Visit 2002 PNEUMOCOCCAL VACCINES 65+ (1 of 2 - PCV13) 2002 INFLUENZA VACCINE (#1) 2018 documented as of this encounter Results Not on filedocumented in this encounter Visit Diagnoses Diagnosis Right elbow pain Pain in joint, upper arm documented in this encounter Insurance Payer Benefit Plan / Subscriber ID Effective Phone Address Type Group Dates MEDICARE MEDICARE PART xxxxxxxxxxx 2002-Pres [id number] [place] [address] [facility] [employer] [facility] [id number] 2016-Roxy [place] nt documented as of this encounter
--- OUTSIDE RECORDS SUMMARY | 2019-04-23 14:14 | XMS REPORT | Summary of Care ---
:1935 [address] [facility] Address [address] [place] [address] Care Team Providers Name Role Phone Pcp, Patient Does Not Have A Primary Care Provider Encounter Details Date Type Department Care Team Description 04/13/2019 [facility] [address] [place] [address] [place] [address] [place] [address] [place], [place] [phone] Allergies No Known Allergiesdocumented as of this [...] Name Type Priority Associated Diagnoses Date/Time XR HIP 1 VW BILATERAL IMAGING Routine Pelvic pain 04/13/2019 4:22 PM BUSINESS ASST Name Type Priority Associated Diagnoses Order Schedule XR HIP 1 VW BILATERAL IMAGING Routine Pelvic pain 1 Occurrences starting 04/13/2019 until 04/13/2019 Health Maintenance Due Date Last Done Comments DTaP,Tdap,and Td Vaccines (1 - Tdap) 01/23/1946 Zoster Recombinant Vaccine (SHINGRIX) (1 of 2) 1987 Medicare Wellness Visit 2002 PNEUMOCOCCAL VACCINES 65+ (1 of 2 - PCV13) 2002 INFLUENZA VACCINE (#1) 2018 documented as of this encounter Results Not on filedocumented in this encounter Visit Diagnoses Diagnosis Pelvic pain Unspecified symptom associated with female genital organs documented in this encounter Insurance Payer Benefit Plan / Subscriber ID Effective Phone Address Type Group Dates MEDICARE MEDICARE PART xxxxxxxxxxx 2002-Pres [id number] [place] [address] [email or web address] [id number] 2016-Roxy aceves documented as of this encounter
--- OUTSIDE RECORDS SUMMARY | 2019-04-23 14:14 | XMS REPORT | Summary of Care ---
:1935 Author Organization [facility] - [facility] Address [address] [place] [address] Care Team Providers Name Role Phone Pcp, Patient Does Not Have A Primary Care Provider Reason for Referral Radiology Services (Routine) Status Reason Specialty Diagnoses / Referred By Referred To Procedures Contact Contact New Request Diagnostic Diagnoses Right elbow pain Juni Fields Radiology Procedures XR ELBOW >3 VW RIGHT MD Ana [address] [place] [address] Radiology Services (Routine) Status Reason Specialty Diagnoses / Referred By Referred To Procedures Contact Contact New Request Diagnostic Diagnoses Pelvic pain Juni Fields Radiology Procedures XR HIP 1 VW BILATERAL MD Ana [address] [place] [address] [place] [address] Reason for Visit Reason Comments Elbow Pain Right elbow injury DOI: 04/08/19 Encounter Details Date Type Department Care Team Description 04/13/2019 Office Visit [facility] Orthopaedic Juni Fields Right elbow pain (Primary Dx); Surgery- Kennedy Perez MD Pelvic pain [address] [place] [address] [place], [place] [phone] Allergies No Known Allergiesdocumented as of this encounter (statuses as of 04/15/2019) Medications Medication Sig Dispensed Refills Start Date [...] as of this encounter (statuses as of 04/15/2019) Active Problems Not on filedocumented as of this encounter (statuses as of 04/15/2019) Social History Tobacco Use Types Packs/Day Years Used Date Never Smoker Smokeless Tobacco: Never Used Sex Assigned at Date Recorded Not on file Job Start Date Occupation Industry Not on file Not on file Not on file Travel History Travel Start Travel End No recent travel history available. documented as of this encounter Last Filed Vital Signs Vital Sign Reading Time Taken Comments Blood Pressure 123/74 04/13/2019 3:57 PM CLOTHES DRIER REPAIRER Pulse 63 04/13/2019 3:57 PM CLOTHES DRIER REPAIRER Temperature - - Respiratory Rate 20 04/13/2019 3:57 PM CLOTHES DRIER REPAIRER Oxygen Saturation - - Inhaled Oxygen Concentration - - Weight 65.8 kg (145 lb) 04/13/2019 3:57 PM CLOTHES DRIER REPAIRER Height 175.3 cm (5' 9") 04/13/2019 3:57 PM CLOTHES DRIER REPAIRER Body Mass Index 21.41 04/13/2019 3:57 PM CLOTHES DRIER REPAIRER documented in this encounter Progress Notes Juni Fields MD - 04/13/2019 3:15 PM CST Chan Juan is a 84 year old male Chief Complaint Patient presents with Elbow Pain Right elbow injury DOI: 04/08/19 Vitals: 04/13/19 1557 BP: 123/74 BP Location: Left arm Patient Position: Sitting BP CUFF SIZE: Adult Medium Pulse: 63 Resp: 20 Weight: 65.8 kg (145 lb) Height: 69" (175.3 cm) [id number] - [place], [place] - [address] [employer] Incident occurred: 04/08/19 Incident location: Home Injury mechanism: patient fell on concrete landing on his elbow Pain location: right elbow DME status: none Radiology status: none All Vitals taken, allergies and all medications reviewed, fall risk assessed. Pain level 5/10. DAPHNE GAMBLE MA 04/13/2019 4:05 PM Chan Juan is a 84 year old male. Patient slipped and fell injuring his right elbow. He reports leg weakness. Arrived walking with a cane. Elbow Pain This is a new problem. Episode onset: 04/08/2019. The problem has been waxing and waning. Associatedsymptoms include joint swelling. Allergies Chan has No Known Allergies. Medications Outpatient Medications Prior to Visit Medication Sig Dispense Refill HYDROmorphone 4 mg tablet ketorolac 0.5 % ophthalmic solution INT 1 GTT IN OS DAILY. START 1 DAY B SURGERY.USE 3 GTS EACH 5 MIN APART THE MORNING OF SURGERY methocarbamol 500 mg tablet moxifloxacin 0.5 % ophthalmic drops INT 1 GTT IN OS TWICE DAILY. START 1 DAY B SURGERY.USE 3 GTSEACH 5 MIN APART THE MORNING OF SURGERY prednisoLONE acetate 1 % ophthalmic suspension drops SHAKE LQ AND INT 1 GTT IN OS TWICE DAILY. START 1 DAY AFTER SURGERY No facility-administered medications prior to visit. Histories Past Medical History: Diagnosis Date Hypertension No past surgical history on file. Social History Socioeconomic History Marital status: Spouse name: Not on file Number of children: Not on file Years of education: Not on file Highest education level: Not on file Occupational History Not on file Social Needs Financial resource strain: Not on file Food insecurity: Worry: Not on file Inability: Not on file Transportation needs: Medical: Not on file Non-medical: Not on file Tobacco Use Smoking status: Never Smoker Smokeless tobacco: Never Used Substance and Sexual Activity Alcohol use: Not on file Drug use: Not on file Sexual activity: Not on file Lifestyle Physical activity: Days per week: Not on file Minutes per session: Not on file Stress: Not on file Relationships Social connections: Talks on phone: Not on file Gets together: Not on file Attends jew service: Not on file Active member of club or organization: Not on file Attends meetings of clubs or organizations: Not on file Relationship status: Not on file Intimate partner violence: Fear of current or ex partner: Not on file Emotionally abused: Not on file Physically abused: Not on file Forced sexual activity: Not on file Other Topics Concern Not on file Social History Narrative Not on file Family History Problem Relation Age of Onset No Significant Medical Problems Mother No Significant Medical Problems Father Review of Systems Constitutional: Negative. HENT: Negative. Eyes: Negative. Respiratory: Negative. Breasts: Negative. Cardiovascular: Negative. Gastrointestinal: Negative. Genitourinary: Negative. Musculoskeletal: Positive for joint swelling. Skin: Negative. Neurological: Negative. Psychiatric/Behavioral: Negative. Endocrine: Endocrine negative Vital Signs Ht 69" (175.3 cm) | Wt 65.8 kg (145 lb) | BMI 21.41 kg/m Physical Exam Musculoskeletal: Right elbow: He exhibits decreased range of motion, swelling and laceration. Tenderness found. Olecranon process tenderness noted. General: Well-developed well-nourished oriented to person place and time HEENT normocephalic atraumatic atraumatic pupils equal round reactive to light extraocular muscles intact Cervical thoracic and lumbar spine without focal deficit normal kyphosis and lordosis Chest clear to auscultation and percussion Cardiovascular regular rate and rhythm without gallop rub or murmur soft without organomegaly Normal bowel sounds Neurologic: Focal myotome or dermatomal deficits Vascular: Intact symmetrical bilateral upper and lower extremities Skin without stasis varicosities or breakdown Extremities without cyanosis clubbing or edema Lymphatics no peripheral lymphedema Psych normal mood and affect. Neurovascular function is intact. To include brisk capillary refill warm pink skin active motor function and sensory function intact. Nursing note and vitals reviewed. Assessment/Plan Diagnosis Right Olecranon Fracture Plan Patient placed into an arm sling. Recommended he follow up with PCP regarding weakness. Follow up 4 weeks. documented in this encounter Plan of Treatment Health Maintenance Due Date Last Done Comments DTaP,Tdap,and Td Vaccines (1 - Tdap) 01/23/1946 Zoster Recombinant Vaccine (SHINGRIX) (1 of 2) 1987 Medicare Wellness Visit 2002 PNEUMOCOCCAL VACCINES 65+ (1 of 2 - PCV13) 2002 INFLUENZA VACCINE (#1) 2018 documented as of this encounter Results XR ELBOW >3 VW RIGHT (04/13/2019 4:22 PM CLOTHES DRIER REPAIRER) Specimen Narrative Performed At Olecranon fracture in acceptable position PACS Performing Organization Address City/State/[place] Phone Number PACS XR HIP 1 VW BILATERAL (04/13/2019 4:22 PM CLOTHES DRIER REPAIRER) Specimen Narrative Performed At No fractures or dislocations PACS Performing Organization Address City/[facility]/[place] Phone Number PACS documented in this encounter Visit Diagnoses Diagnosis Right elbow pain - Primary Pain in joint, upper arm Pelvic pain Unspecified symptom associated with female genital organs documented in this encounter Insurance Payer Benefit Plan / Subscriber ID Effective Phone Address Type Group Dates MEDICARE MEDICARE PART xxxxxxxxxxx 2002- [phone] Medicare A & B ent [id number] [place] [phone] [facility] oboxo [id number] 2016-Roxy SANTIAGO nt documented as of this encounter
--- OUTSIDE RECORDS SUMMARY | 2019-04-23 14:14 | XMS REPORT | Summary of Care ---
:1935 Author Organization [facility] - [facility] Address [address] [place] [address] Care Team Providers Name Role Phone Pcp, Patient Does Not Have A Primary Care Provider Reason for Referral Radiology Services (Routine) Status Reason Specialty Diagnoses / Referred By Referred To Procedures Contact Contact New Request Diagnostic Diagnoses Right elbow pain Juni Fields Radiology Procedures XR ELBOW >3 VW RIGHT MD Ana [address] [place] [address] Radiology Services (Routine) Status Reason Specialty Diagnoses / Referred By Referred To Procedures Contact Contact New Request Diagnostic Diagnoses Pelvic pain Juni Fields Radiology Procedures XR HIP 1 VW BILATERAL MD Ana [address] [place] [address] [place] [address] Reason for Visit Reason Comments Elbow Pain Right elbow injury DOI: 04/08/19 Encounter Details Date Type Department Care Team Description 04/13/2019 Office Visit [facility] Orthopaedic Juni Fields Right elbow pain (Primary Dx); Surgery- Kennedy Perez MD Pelvic pain [address] [place] [address] [place], [place] [phone] Allergies No Known Allergiesdocumented as of [...] Comments Blood Pressure 123/74 04/13/2019 3:57 PM INSTRUCTIONAL TECHNOLOGY SPECIALIST Pulse 63 04/13/2019 3:57 PM INSTRUCTIONAL TECHNOLOGY SPECIALIST Temperature - - Respiratory Rate 20 04/13/2019 3:57 PM INSTRUCTIONAL TECHNOLOGY SPECIALIST Oxygen Saturation - - Inhaled Oxygen Concentration - - Weight 65.8 kg (145 lb) 04/13/2019 3:57 PM INSTRUCTIONAL TECHNOLOGY SPECIALIST Height 175.3 cm (5' 9") 04/13/2019 3:57 PM INSTRUCTIONAL TECHNOLOGY SPECIALIST Body Mass Index 21.41 04/13/2019 3:57 PM INSTRUCTIONAL TECHNOLOGY SPECIALIST documented in this encounter Progress Notes Juni [...] kg (145 lb) Height: 69" (175.3 cm) [id number] - [place], [place] - [address] [employer] Incident occurred: 04/08/19 Incident location: Home Injury [...] file Gets together: Not on file Attends worship service: Not on file Active member of [...] ELBOW >3 VW RIGHT (04/13/2019 4:22 PM INSTRUCTIONAL TECHNOLOGY SPECIALIST) Specimen Narrative Performed At Olecranon fracture in acceptable position PACS Performing Organization Address City/State[facility] Phone Number PACS XR HIP 1 VW BILATERAL (04/13/2019 4:22 PM INSTRUCTIONAL TECHNOLOGY SPECIALIST) Specimen Narrative Performed At No fractures or dislocations PACS Performing Organization Address City/[facility] Phone Number PACS documented in this encounter Visit Diagnoses Diagnosis Right elbow pain - Primary Pain in joint, upper arm Pelvic pain Unspecified symptom associated with female genital organs documented in this encounter Insurance Payer Benefit Plan / Subscriber ID Effective Phone Address Type Group Dates MEDICARE MEDICARE PART xxxxxxxxxxx 2002- [phone] Medicare A & B ent [id number] [place] [id number] [facility] [place] [id number] 2016-Roxy SANTIAGO nt documented as of this encounter
--- OUTSIDE RECORDS SUMMARY | 2019-04-23 14:14 | XMS REPORT ---
:1935 [facility] Address [address] [place] [address] [address] [place] [address] Care Team Providers Name Role Phone Unavailable Unavailable Unavailable Problems This patient has no known problems. Allergies, Adverse Reactions, Alerts This patient has no known allergies or adverse reactions. Medications This patient has no known medications.
--- OUTSIDE RECORDS SUMMARY | 2019-04-23 14:14 | XMS REPORT ---
:1935 Author Organization [employer] Care Team Providers Name Role Phone Tammie Madrigal Provider Role Unavailable Allergies No Known Allergies Problems Problem Type Condition Code Onset Dates Condition Status Assessment Essential (primary) hypertension I10 Active Problem [...] Medications Medication Code Code Instructions Start End Date Status Dosage System Date Bisoprolol-Hyd [facility] 13204831119 5-6.25 MG Oral Active 1 tablet rochlorothiazi Once a day de Results No Known Results Summary Purpose eClinicalWorks Submission
--- OUTSIDE RECORDS SUMMARY | 2019-04-23 14:14 | XMS REPORT ---
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 98784337178 100 MG Orally Active 1 capsule Three times a day Calcium [facility] 89985688803 600 MG Orally Active 1 tablet Twice a day with meals Fish Oil [facility] 20162986814 1000 MG Orally Active 1 capsule Once a day Aspirin ND 26689137339 81 MG Orally Active 1 tablet Once a day Ziac [facility] 08748428264 5-6.25 MG Orally Active 1 tablet Once a day Valsartan ND 56113364660 40 MG Orally Oct 12, Active 1 tablet Twice a day 2018 Lisinopril ND 68424488219 20 MG Orally Oct 12, Active 1 tablet Once a day 2018 Temazepam ND 85370393565 15 MG Orally Active 1 capsule Once a day at bedtime as needed Results No Known Results Summary Purpose eClinicalWorks Submission
--- OUTSIDE RECORDS SUMMARY | 2019-04-23 14:14 | XMS REPORT ---
[...] Medications Medication Code System Code Instructions Start Date End Date Status Dosage ac [facility] 69199864661 5-6.25 MG Orally Active 1 tablet Once a day Results No Known Results Summary Purpose eClinicalWorks Submission
--- NOTE | 2019-04-23 14:52 | RAD REPORT ---
EXAM DESCRIPTION: RAD - Wrist Right 3 View - 04/23/2019 2:41 pm CLINICAL HISTORY: Right wrist pain status post injury FINDINGS: No fracture or dislocation is seen. Osteoporosis If the patient continues to have symptoms to suggest an occult fracture then a followup plain film se kraig in 7 days would be recommended.
--- NOTE | 2019-04-23 14:54 | RAD REPORT ---
EXAM DESCRIPTION: RAD - Elbow Right 3 View - 04/23/2019 2:41 pm CLINICAL HISTORY: Right elbow pain status post fall FINDINGS: Comminuted avulsion fracture involves the olecranon process. Fracture fragment 1 4 millimeters No dislocation
--- NOTE | 2019-04-23 15:40 | ER ---
Nurse's Notes [facility] Name: Chan Juan Age: 84 yrs Sex: Male : 1935 Arrival Date: 04/23/2019 Time: 14:14 Bed 17 Private MD: Diagnosis: Comminuted avulsion fracture of the right olecranon process Presentation: 04/22 14:14 Chief complaint: Patient states: "I was going to the mailbox and my dog ran out in vc front of me, I tripped and was trying not to fall, I was going and going then I tripped over something, I didn't want to fall on my hip so my elbow took most of the fall.". Coronavirus screen: The patient has NOT traveled to a country currently being monitored by the [facility] within the last 14 days. Proceed with normal triage procedures. Ebola Screen: No symptoms or risks identified at this time. 14:14 Method Of Arrival: EMS: [facility] 14:14 Initial Sepsis Screen: Does the patient meet any 2 criteria? No. Patient's initial vc sepsis screen is negative. Does the patient have a suspected source of infection? No. Patient's initial sepsis screen is negative. Risk Assessment: Do you want to hurt yourself or someone else? Patient reports no desire to harm self or others. 14:14 Acuity: LUANA 4 vc 14:36 Onset of symptoms is unknown. vc Triage Assessment: 14:35 General: Appears in no apparent distress. Behavior is calm, cooperative, appropriate vc for age. Pain: Complains of pain in right elbow Pain currently is 8 out of 10 on a pain scale. Historical: - Allergies: 14:31 No Known Allergies; vc - Home Meds: 14:31 Dilaudid [Active]; bisoprolol fumarate Oral [Active]; vc - PMHx: 14:31 chronic back pain; Hypertension; vc - PSHx: 14:31 Cholecystectomy; vc - Immunization history:: Adult Immunizations up to date. - Social history:: Smoking status: Patient denies any tobacco usage or history of. Screenin:34 Abuse screen: Denies threats or abuse. Nutritional screening: No deficits noted. vc Tuberculosis screening: No symptoms or risk factors identified. Fall Risk Fall in past 12 months (25 points). No secondary diagnosis (0 pts). No IV (0 pts). Ambulatory Aid- None/Bed Rest/Nurse Assist (0 pts). Gait- Weak (10 pts.). Total Mcmanus Fall Scale indicates High Risk Score (45 or more points). Assessment: 14:20 General: Appears in no apparent distress. comfortable, Behavior is calm, cooperative, vc appropriate for age. Pain: Complains of pain in right arm and right elbow Pain does not radiate. Pain currently is 8 out of 10 on a pain scale. at worst was 10 out of 10 on a pain scale. Neuro: Level of Consciousness is awake, alert, obeys commands, Oriented to person, place, time, situation. Cardiovascular: Patient's skin is warm and dry. Respiratory: Airway is patent Respiratory effort is even, unlabored, Respiratory pattern is regular, symmetrical. GI: No signs and/or symptoms were reported involving the gastrointestinal system. : No signs and/or symptoms were reported regarding the genitourinary system. EENT: No signs and/or symptoms were reported regarding the EENT system. Derm: scratch to right arm above elbow, discoloration to bilateral legs from alvarez down. 14:20 Derm: Bruising that is dark purple, brown, yellow, on right arm. vc 15:30 Reassessment: Patient and/or family updated on plan of care and expected duration. Pain vc level reassessed. Patient is alert, oriented x 3, equal unlabored respirations, skin warm/dry/pink. 16:21 Reassessment: Patient and/or family updated on plan of care and expected duration. Pain vc level reassessed. Patient is alert, oriented x 3, equal unlabored respirations, skin warm/dry/pink. Patient states feeling better. Neuro: Level of Consciousness is awake, alert, obeys commands, Oriented to person, place, time, situation, Management Nurse Rn are. Vital Signs: 14:14 BP 198 / 68; Pulse 62; Resp 18; Pulse Ox 99% on R/A; vc 14:32 BP 174 / 63; Pulse 59; Resp 17; Temp 98.6(O); Pulse Ox 100% on R/A; Weight 65.77 kg; vc Height 5 ft. 10 in. (177.80 cm); Pain 8/10; 15:32 BP 188 / 70; Pulse 61; Resp 16; Temp 98.0(O); Pulse Ox 98% on R/A; mh5 16:22 BP 188 / 71; Pulse 62; Resp 17; Temp 97.8(O); Pulse Ox 99% on R/A; mh5 14:32 Body Mass Index 20.81 (65.77 kg, 177.80 cm) vc ED Course: 14:14 Patient arrived in ED. aa5 14:14 Bear Farah NP is PHCP. pm1 14:14 Austin Leong MD is Attending Physician. pm1 14:20 Rubia Monroy, KATELIN is Primary Nurse. vc 14:24 Patient has correct armband on for positive identification. Bed in low position. Call mh5 light in reach. Side rails up X2. Warm blanket given. Pulse ox on. NIBP on. 14:26 Triage completed. vc 14:36 Arm band placed on. vc 14:41 Elbow Right 3 View XRAY In Process Unspecified. EDMS 14:41 Wrist Right 3 View XRAY In Process Unspecified. EDMS 15:38 Margarito Hernandez MD is Referral Physician. pm1 16:14 Orthoglass splint: POSTERIOR ELBOW RIGHT Sling applied to. mh5 16:22 No provider procedures requiring assistance completed. Patient did not have IV access vc during this emergency room visit. Administered Medications: No medications were administered Outcome: 15:40 Discharge ordered by . pm1 16:22 Condition: good vc 16:22 Discharge instructions given to patient, Instructed on discharge instructions, follow up and referral plans. Demonstrated understanding of instructions, follow-up care, medications. 17:39 Patient left the ED. aa5 Signatures: Dispatcher [employer] Elisabeth Bentley, KATELIN THOMASON [facility] Bear Farah NP EKG MONITOR pm1 Hermelinda Varma [facility] Rubia Monroy RN RN vc
--- NOTE | 2019-04-23 15:41 | EDPHYS ---
Physician Documentation [facility] Name: Chan Juan Age: 84 yrs Sex: Male : 1935 Arrival Date: 04/23/2019 Time: 14:14 Bed 17 Private MD: ED Physician Austin Leong HPI: 04/22 14:34 This 84 yrs old Male presents to ER via EMS with complaints of Elbow pain. pm1 14:34 The patient or guardian complains of pain. The complaints affect the right elbow. pm1 Context: The problem was sustained outdoors, resulted from Tripped by his dog. Onset: The symptoms/episode began/occurred 2 week(s) ago. Treatment prior to arrival includes: no previous treatment. Modifying factors: The symptoms are alleviated by remaining still, the symptoms are aggravated by bending arm. Associated signs and symptoms: Pertinent positives: pain, swelling, Pertinent negatives: numbness, tingling. Severity of symptoms: in the emergency department the symptoms are unchanged. Patient presents to the ER after a fall two weeks ago. Patient [place]. One of his dogs in the car tripped him and he fell backwards towards his right side. Came to the ER to get a X-ray of his elbow. Patient has been walking since fall. No headache, LOC, or neck pain. Historical: - Allergies: 14:31 No Known Allergies; vc - Home Meds: 14:31 Dilaudid [Active]; bisoprolol fumarate Oral [Active]; vc - PMHx: 14:31 chronic back pain; Hypertension; vc - PSHx: 14:31 Cholecystectomy; vc - Immunization history:: Adult Immunizations up to date. - Social history:: Smoking status: Patient denies any tobacco usage or history of. ROS: 14:34 Constitutional: Negative for fever, chills, and weight loss, Neck: Negative for injury, pm1 pain, and swelling, Cardiovascular: Negative for chest pain, palpitations, and edema, Respiratory: Negative for shortness of breath, cough, wheezing, and pleuritic chest pain, Abdomen/GI: Negative for abdominal pain, nausea, vomiting, diarrhea, and constipation, Back: Negative for injury and pain. 14:34 Skin: Negative for injury, rash, and discoloration, Neuro: Negative for headache, weakness, numbness, tingling, and seizure. 14:34 MS/extremity: Positive for pain, swelling, of the right elbow, Negative for decreased range of motion, deformity. Exam: 14:34 Constitutional: This is a well developed, well nourished patient who is awake, alert, pm1 and in no acute distress. Head/Face: Normocephalic, atraumatic. Neck: Trachea midline, no thyromegaly or masses palpated, and no cervical lymphadenopathy. Supple, full range of motion without nuchal rigidity, or vertebral point tenderness. No Meningismus. Chest/axilla: Normal chest wall appearance and motion. Nontender with no deformity. No lesions are appreciated. Cardiovascular: Regular rate and rhythm with a normal S1 and S2. No gallops, murmurs, or rubs. Normal PMI, no JVD. No pulse deficits. Respiratory: Lungs have equal breath sounds bilaterally, clear to auscultation and percussion. No rales, rhonchi or wheezes noted. No increased work of breathing, no retractions or nasal flaring. Abdomen/GI: Soft, non-tender, with normal bowel sounds. No distension or tympany. No guarding or rebound. No evidence of tenderness throughout. Back: No spinal tenderness. No costovertebral tenderness. Full range of motion. Skin: Warm, dry with normal turgor. Normal color with no rashes, no lesions, and no evidence of cellulitis. 14:34 Musculoskeletal/extremity: Extremities: grossly normal except: noted in the right elbow: swelling, tenderness, There is no evidence of decreased ROM, noted in the left wrist: tenderness, no evidence of decreased ROM, deformity, swelling, ROM: no acute changes, intact in all extremities, Circulation is intact in all extremities. Vital Signs: 14:14 BP 198 / 68; Pulse 62; Resp 18; Pulse Ox 99% on R/A; vc 14:32 BP 174 / 63; Pulse 59; Resp 17; Temp 98.6(O); Pulse Ox 100% on R/A; Weight 65.77 kg; vc Height 5 ft. 10 in. (177.80 cm); Pain 8/10; 15:32 BP 188 / 70; Pulse 61; Resp 16; Temp 98.0(O); Pulse Ox 98% on R/A; mh5 16:22 BP 188 / 71; Pulse 62; Resp 17; Temp 97.8(O); Pulse Ox 99% on R/A; mh5 14:32 Body Mass Index 20.81 (65.77 kg, 177.80 cm) vc Procedures: 17:49 Splinting: Splint applied to right elbow using Orthoglass splint, applied by tech. pm1 Examined by me, post splint application: neurovascular intact, 2+ distal pulses palpable, brisk capillary refill noted, Patient tolerated well. MDM: 14:14 Patient medically screened. pm1 14:40 Data reviewed: vital signs. Data interpreted: Pulse oximetry: on room air is 100 %. pm1 Interpretation: normal. 15:38 Counseling: I had a detailed discussion with the patient and/or guardian regarding: the pm1 historical points, exam findings, and any diagnostic results supporting the discharge/admit diagnosis, radiology results, the need for outpatient follow up, for definitive care, a orthopedic surgeon, to return to the emergency department if symptoms worsen or persist or if there are any questions or concerns that arise at home. 15:43 ED course: [employer] aware review. Patient with Dilaudid prescription for chronic back pain. pm1 No prescription required from me. 17:05 ED course: Upon discussion with the patient regarding his x-ray results, the patient pm1 reports that he saw Dr. Weiss for his fall injury about 2 weeks ago and was told that he has a right elbow fracture. Told him that he has two options, surgery with pins or to let it heal as it is. The patient elected to let it heal without surgery. I asked the patient why he came to the ER if already knew about the elbow fracture and said that he came here for pain management of his elbow. Patient takes Dilaudid for chronic pain and it was recently filled according to [employer] aware. His girlfriend informed the patient that he had already ran out and she would like a prescription for him upon discharge. 04/22 14:15 Order name: Elbow Right 3 View XRAY; Complete Time: 15:28 pm1 04/22 14:15 Order name: Wrist Right 3 View XRAY; Complete Time: 15:28 pm1 04/22 15:32 Order name: Splint - Elbow - Posterior; Complete Time: 16:14 pm1 04/22 15:32 Order name: Sling; Complete Time: 16:14 pm1 Administered Medications: No medications were administered Disposition: 18:41 Co-signature as Attending Physician, Austin Leong MD. rn Disposition: 04/23/19 15:40 Discharged to Home. Impression: Comminuted avulsion fracture of the right olecranon process. - Condition is Stable. - Discharge Instructions: Cast or Splint Care, Adult, Elbow Fracture Treated With ORIF, How to Use a Sling. - Medication Reconciliation Form, Thank You Letter, Antibiotic Education, Prescription Opioid Use form. - Follow up: Emergency Department; When: As needed; Reason: Worsening of condition. Follow up: Margarito Hernandez MD; When: 2 - 3 days; Reason: Recheck today's complaints, Continuance of care, Re-evaluation by your physician. - Problem is new. - Symptoms have improved. Signatures: Dispatcher [employer] EDMS Austin Leong MD MD rn Calderon, Audri RN RN aa5 Bear Farah, AIRPLANE PILOT HELPER AIRPLANE PILOT HELPER pm1 Rubia Monroy RN RN vc Corrections: (The following items were deleted from the chart) 17:39 15:40 04/23/2019 15:40 Discharged to Home. Impression: Comminuted avulsion fracture of aa5 the right olecranon process. Condition is Stable. Forms are Medication Reconciliation Form, Thank You Letter, Antibiotic Education, Prescription Opioid Use. Follow up: Emergency Department; When: As needed; Reason: Worsening of condition. Follow up: Dr. Margarito Hernandez; When: 2 - 3 days; Reason: Recheck today's complaints, Continuance of care, Re-evaluation by your physician. Problem is new. Symptoms have improved. pm1
[2019-04-23 17:49] VITALS: BP 188/71; TEMP 97.8; O2SAT 99
== END 2019-04-23 17:39 | disposition home or self-care (01) ==
LOC: ER 14:11
PROC: 2W38X1Z Immobilization of Right Upper Extremity using Splint (ICD-10-PCS; principal; 2019-04-23)
DX: S52.021A Displaced fracture of olecranon process without intraarticular extension of right ulna, initial encounter for closed fracture (principal); W18.09XA Striking against other object with subsequent fall, initial encounter; Y93.89 Activity, other specified; Y92.89 Other specified places as the place of occurrence of the external cause; I10 Essential (primary) hypertension
CPT/HCPCS: 99284